=== PATIENT | female | born 1975 | race Caucasian/White ===

== ENCOUNTER → 2016-09-08 | Outpatient (CLI) | payer BC ==
[~2016-09-08] MED LIST: BACTRIM DS 8001 TAB PO; FLOMAX 0.40.4 MG/CAP PO; GLUCOPHAGE1000 MG PO; NORCO 325 MG-51 TAB PO; PROZAC40 MG PO; ZOFRAN 4MG T4 MG/TAB PO
== END ==
LOC: COL.PUL 13:00
DX: J44.9 Chronic obstructive pulmonary disease, unspecified (principal); R10.84 Generalized abdominal pain; K76.0 Fatty (change of) liver, not elsewhere classified; R16.0 Hepatomegaly, not elsewhere classified; Z90.49 Acquired absence of other specified parts of digestive tract

== ENCOUNTER → 2016-12-22 | Outpatient (CLI) | payer BC | LOC: COL.RAD 12-06 08:00 | DX: R91.1 Solitary pulmonary nodule (principal) | CPT/HCPCS: Q9967 ==

== ENCOUNTER → 2018-01-03 | Outpatient (CLI) | payer BC | LOC: COL.RAD 14:08 | DX: N20.0 Calculus of kidney (principal); N20.9 Urinary calculus, unspecified; Z87.442 Personal history of urinary calculi | CPT/HCPCS: Q9967 ==